=== PATIENT | male | born 1990 | race Caucasian/White ===

== ENCOUNTER 2019-03-25 03:21 | Emergency (ER) | payer OTHER ==
[~2019-03-25] VITALS: Ht 165.1 cm; Wt 45.4 kg
[2019-03-25 03:25] VITALS: BP_SYST 138
[2019-03-25] MEDS: ONDANSETRON HCL 4 MG/2 ML VIAL IVP ONE (03:56)
[2019-03-25] MEDS: LORazepam 2 MG/ML VIAL IVP ONE (03:56)
[2019-03-25] MEDS: MECLIZINE HCL 25 MG TABLET (ANITVERT) PO ONE (03:56)
[2019-03-25] MEDS: NACL 0.9% 1,000 ML IV ONE (03:56)
[2019-03-25 04:09] LABS: BASOPHILS # (AUTO) 0.1 K/uL (0.0-0.2); BASOPHILS % (AUTO) 1.2 % (0.0-2.0); EOSINOPHILS # (AUTO) 0.2 K/uL (0.0-0.4); EOSINOPHILS % (AUTO) 2.7 % (0.0-4.0); HEMATOCRIT 44.5 % (36-54); LYMPHOCYTES # (AUTO) 1.7 K/uL (1.0-5.5); LYMPHOCYTES % (AUTO) 21.3 % (20.5-51.5); MEAN CORPUSCULAR HEMOGLOBIN 31 pg (27-31); MEAN CORPUSCULAR HGB CONC 34 % (32-36); MEAN CORPUSCULAR VOLUME 93 fL (79.0-98.0); MONOCYTES # (AUTO) 0.6 K/uL (0.0-1.0); NEUTROPHILS # (AUTO) 5.3 K/uL (1.8-7.7); NEUTROPHILS % (AUTO) 66.8 % (40.0-70.0); PLATELET COUNT (AUTO) 134 K/uL (130-430); RED BLOOD CELL COUNT(AUTO) 4.79 MIL/uL (4.2-6.2); RED CELL DISTRIBUTION WIDTH 13.6 % (9.0-15.0); WHITE BLOOD COUNT (AUTO) 7.9 K/uL (4.8-10.8)
[2019-03-25 04:22] LABS: CALCIUM 8.8 mg/dL (8.4-11.0); CREATININE 1.31 mg/dL (0.55-1.30); POTASSIUM 3.7 mmol/L (3.5-5.1)
[2019-03-25 04:27] LABS: TOTAL BILIRUBIN 0.7 mg/dL (0.0-1.0)
[2019-03-25 09:03] VITALS: BP_SYST 138
== END 2019-03-25 08:58 | disposition home or self-care (01) ==
LOC: SED 03:21
DX: R42 Dizziness and giddiness (principal); R11.10 Vomiting, unspecified; R03.0 Elevated blood-pressure reading, without diagnosis of hypertension
CPT/HCPCS: 36415; 80053; 85025; 96361; 96374; 96375; 99283; J2060; J2405; J7030; J8597